=== PATIENT | female | born 1990 | race Caucasian/White ===

== ENCOUNTER 2018-07-03 05:02 | Inpatient (IN) | payer MEDICAID ==
[~2018-07-03] VITALS: Ht 157.5 cm; Wt 80.0 kg
[~2018-07-03 05:02] MED LIST: IBUPROFEN600 MG PO; PERCOCET 5-3251 TAB PO; PRENATAL COMPLE1 TAB PO
[2018-07-03] MEDS ORDERED: CYCLOBENZAPRINE10 MG PO (05:15)
[2018-07-03 05:31] VITALS: BP 109/69; Ht 157.5 cm; Wt 80.0 kg
[2018-07-03 05:43] LABS: HEMATOCRIT 34.8 % (36.0-48.0); HEMOGLOBIN 12.1 g/dL (12-16); MCH 32.7 pg (26.0-34.0); MCHC 34.8 g/dL (31.0-37.0); MCV 94.1 fL (80.0-100.0); MEAN PLATELET VOLUME 10.2 fL (7.4-10.4); RBC 3.7 10x6/uL (4.00-5.40); RDW 12.9 % (11.5-14.5); WBC 7.4 10x3/uL (4.8-10.8)
[2018-07-03 06:56] LABS: APPEARANCE CLEAR (CLEAR); BACTERIA MODERATE /hpf (NONE SEEN); BILIRUBIN NEGATIVE (NEGATIVE); COLOR YELLOW (YELLOW); EPITHELIAL CELLS 0-5 /hpf (0-5); GLUCOSE NEGATIVE (NEGATIVE); KETONE MODERATE mg/dL (NEGATIVE); NITRITE NEGATIVE (NEGATIVE); PROTEIN NEGATIVE (NEGATIVE); SPECIFIC GRAVITY 1.015 (1.005-1.020); UROBILINOGEN NORMAL (NORMAL); WHITE CELLS - URINE 0-5 /hpf (0-5)
[2018-07-03 06:57] LABS: MUCUS <1+ /lpf (NONE SEEN)
[2018-07-04 06:12] VITALS: BP 106/51; BP 106/81
[2018-07-04 06:22] LABS: BASOPHILS 0.2 % (0-2); EOSINOPHILS 0.7 % (0-7); HEMATOCRIT 30.6 % (36.0-48.0); HEMOGLOBIN 10.4 g/dL (12-16); IMMATURE GRANULOCYTES 0.5 % (0-5); LYMPHOCYTES 20.2 % (15-50); MCH 32.2 pg (26.0-34.0); MCV 94.7 fL (80.0-100.0); MEAN PLATELET VOLUME 10.6 fL (7.4-10.4); MONOCYTES 10.2 % (2-11); NEUTROPHILS 68.2 % (40-80); PLATELET COUNT 142 10x3/uL (130-400); RBC 3.23 10x6/uL (4.00-5.40)
[2018-07-04 06:51] LABS: WBC 11.8 10x3/uL (4.8-10.8)
[2018-07-04 07:28] LABS: RAPID PLASMA REAGIN Non Reactive (Non Reactive)
[2018-07-04 08:20] VITALS: BP 110/73
[2018-07-04] MEDS ORDERED: HYDROCODON-ACE1 EAC7 PO (19:07)
[2018-07-04] MEDS ORDERED: MOTRIN600 MG PEG (19:07)
[2018-07-04 19:20] VITALS: BP 121/88
== END 2018-07-04 21:00 | disposition home or self-care (01) | DRG 775 ==
LOC: D.LD 05:02
PROVIDERS: Obstetrics & Gynecology
PROC: 10E0XZZ Delivery of Products of Conception, External Approach (ICD-10-PCS; principal; 2018-07-03)
PROC: 10907ZC Drainage of Amniotic Fluid, Therapeutic from Products of Conception, Via Natural or Artificial Opening (ICD-10-PCS; 2018-07-03)
PROC: 3E033VJ Introduction of Other Hormone into Peripheral Vein, Percutaneous Approach (ICD-10-PCS; 2018-07-03)
DX: O80 Encounter for full-term uncomplicated delivery (principal); Z37.0 Single live birth; Z3A.39 39 weeks gestation of pregnancy

== ENCOUNTER 2018-08-16 07:35 | Day surgery (SDC) | payer MEDICAID ==
[2018-08-14 14:44] LABS: BASOPHILS 0.6 % (0-2); EOSINOPHILS 1.9 % (0-7); HEMATOCRIT 39.4 % (36.0-48.0); HEMOGLOBIN 13.5 g/dL (12-16); IMMATURE GRANULOCYTES 0.2 % (0-5); LYMPHOCYTES 30.1 % (15-50); MCH 32.3 pg (26.0-34.0); MCHC 34.3 g/dL (31.0-37.0); MCV 94.3 fL (80.0-100.0); MEAN PLATELET VOLUME 8.9 fL (7.4-10.4); NEUTROPHILS 58.2 % (40-80); RBC 4.18 10x6/uL (4.00-5.40); RDW 11.9 % (11.5-14.5); WBC 8.4 10x3/uL (4.8-10.8)
[2018-08-14 14:57] LABS: PLATELET COUNT 218 10x3/uL (130-400)
[~2018-08-16] VITALS: Ht 157.5 cm; Wt 71.2 kg
--- NOTE | ~2018-08-16 | OP ---
PATIENT NAME: BRY UGALDE MEDICAL RECORD: [id number] :89 LOCATION:[facility] ADMISSION DATE: SURGEON: JANE ARIAS MD DATE OF OPERATION: 08/16/2018 PREOPERATIVE DIAGNOSIS: Multiparity, the patient desires permanent sterility. POSTOPERATIVE DIAGNOSIS: Multiparity, the patient desires permanent sterility. PROCEDURE: Laparoscopic tubal ligation. SURGEON: Jane Arias MD ANESTHESIA: General endotracheal. INTRAVENOUS FLUIDS: Per anesthesia record. SPECIMENS: None. FINDINGS: Grossly normal-appearing uterus, fallopian tubes and ovaries. COMPLICATIONS: None apparent. DESCRIPTION OF PROCEDURE: The patient was taken to the operating room where general anesthesia was achieved without difficulty. The patient was then prepped and draped in normal sterile fashion in the dorsal lithotomy position. Following prep and drape, the bladder was drained of approximately 100 cc of clear yellow urine and a sponge stick was placed in the vagina for uterine elevation. Attention was then turned to the umbilicus where a 5-mm incision was placed in the inferior aspect and a 5-mm bladeless trocar was used to enter the intraperitoneal space under direct visualization of the laparoscope. The patient was then insufflated and opening pressure was found to be less than 10 mmHg. The introducer was removed and the scope was replaced through the port confirming intraperitoneal placement. Following insufflation, a second 5-mm incision was placed above the pubic bone in the midline and a second 5-mm bladeless trocar was used to enter the intraperitoneal space under direct visualization of the laparoscope. Attention was then turned to the bilateral fallopian tubes. Fimbriated ends were identified bilaterally and approximately 5 cm section of the mid portion of the tube was desiccated using the bipolar cautery paddles. Good hemostasis was noted from both sites. The patient was then desufflated and the trocars were removed. The incisions were repaired using 3-0 Vicryl in an interrupted fashion. The sponge stick was removed from the vagina. The patient tolerated the procedure well and was transferred to postanesthesia recovery stable without incident. TRANSINT:[id number] Voice Confirmation ID: [id number] DOCUMENT ID: [id number] OPERATIVE REPORT [id number] BRY UGALDE JANE ARIAS MD at 1450 CC: [id number] DICTATION DATE: 09/21/1820 PIANO MECHANIC APPRENTICE: 09/21/18 [id number] [facility] 08/16/18 [place] [id number] [place] [id number]
[~2018-08-16 07:35] MED LIST changes: +CYCLOBENZAPRINE10 MG PO; +HYDROCODON-ACE1 EAC7 PO; +MOTRIN600 MG PEG
[2018-08-16] MEDS ORDERED: ZYRTEC10 MG PO (08:06)
[2018-08-16 08:10] VITALS: BP 130/70; Ht 157.5 cm; Wt 71.2 kg
[2018-08-16 08:43] LABS: HCG URINE NEGATIVE (NEGATIVE)
== END 2018-08-16 15:05 | disposition home or self-care (01) ==
LOC: D.OPS 07:35
PROVIDERS: Obstetrics & Gynecology
DX: Z30.2 Encounter for sterilization (principal); Z30.09 Encounter for other general counseling and advice on contraception